=== PATIENT | female | born 1950 | race Caucasian/White ===

== ENCOUNTER 2017-10-30 09:04 | Outpatient (CLI) | payer MEDICARE, BC | END 2017-10-30 09:05 | disposition home or self-care (01) | LOC: BICCT 09:04 | PROVIDERS: ATTEND Internal Medicine | DX: K59.00 Constipation, unspecified (principal); R14.0 Abdominal distension (gaseous); K57.30 Diverticulosis of large intestine without perforation or abscess without bleeding; K76.89 Other specified diseases of liver | CPT/HCPCS: 74177 ==

== ENCOUNTER 2019-09-15 13:50 | Outpatient (CLI) | payer MEDICARE, BC ==
--- NOTE | 2019-09-15 14:42 | RAD ---
Cervical spine 3 views HISTORY: Neck pain. FINDINGS: Vertebral body heights are maintained. Disc space narrowing is most pronounced at the C3-4 and C5-6 levels. There is minimal degenerative spondylolisthesis at the cervicothoracic junction. Osteophytosis throughout the vertebral bodies and facets. No acute fracture, dislocation, or aggressi ve osseous erosions. IMPRESSION : Osteoarthritic changes of the cervical spine. No acute osseous abnormalities are demonstrated.
== END 2019-09-15 13:51 | disposition home or self-care (01) ==
LOC: RAD-FRANK 13:50
PROVIDERS: ATTEND Nurse Practitioner Family
DX: G54.2 Cervical root disorders, not elsewhere classified (principal); M47.812 Spondylosis without myelopathy or radiculopathy, cervical region
CPT/HCPCS: 72040

== ENCOUNTER 2019-10-15 09:38 | Outpatient (CLI) | payer MEDICARE, BC ==
--- NOTE | 2019-10-15 10:48 | MRI ---
Exam: MRI cervical spine without contrast HISTORY: Cervical radiculopathy.. COMPARISON: None FINDINGS: Straightening of cervical lordosis may be due to patient position. Appropriate T1 marrow signal inte nsity of the cervical vertebra. Vertebral body height is maintained. No fracture. No significant STIR hyperintensity to suggest vertebral body edema or ligamentous injury. Visualized brain parenchyma, cervicomedullary junction, cervical cord and the upper thoracic cord hav e a normal size and signal intensity. C2-C3: No significant central canal stenosis or significant neural foraminal narrowing. C3-C4: Disc desiccation with mild loss of disc space height. Broad-based disc osteophyte complex. Mil d central canal stenosis. Moderate to severe right and moderate left neural foraminal narrowing due to uncovertebral hypertrophy. C4-C5: Disc desiccation without significant loss of disc space height. Broad-based disc bulge abuts t he thecal sac and nearly effaces the subarachnoid space. Mild central canal stenosis. Bilaterally, neural foramina are patent. C5-C6: Disc desiccation with moderate loss of disc space height. Broad-based disc osteophyte complex abuts the thecal sac. Mild mass effect and deformity of the cervical cord. Mild central canal stenosis. Mild to moderate bilateral foraminal narrowing due to uncovertebral hypertrophy. C6-C7: Disc desiccation with moderate loss of disc space height. Broad-based disc osteophyte complex abuts the thecal sac. Mild to moderate central canal stenosis. Mild to moderate bilateral neural foraminal narrowing. Perineural sleeve cyst in the left neural foramen. C7-T1: Adequate disc hydration. No significant central canal stenosis or significant neural foraminal narrowing. IMPRESSION: Multilevel degenerative changes of the cervical spine as described above. Transcribed Date/Time: 10/15/2019 10:57 AM
== END 2019-10-15 09:39 | disposition home or self-care (01) ==
LOC: TBSIIMAG 09:38
PROVIDERS: ATTEND Nurse Practitioner Family
DX: G54.2 Cervical root disorders, not elsewhere classified (principal); M47.812 Spondylosis without myelopathy or radiculopathy, cervical region
CPT/HCPCS: 72141

== ENCOUNTER 2019-12-06 11:47 | Emergency (ER) | payer MEDICARE, BC ==
[2019-12-06 12:13] LABS: #Lymphocytes 1.5 thou/uL (1.20-3.40); #Monocytes 0.8 thou/uL (0.11-0.59); #Neutrophils 8.7 thou/uL (1.40-6.50); %Basophils 0.2 % (0.0-1.0); %Eosinophils 0.3 % (0.0-10.0); %Lymphocytes 13.5 % (21.0-51.0); %Monocytes 6.8 % (0.0-10.0); %Neutrophils 79.3 % (42.0-75.0); Hemoglobin 13.8 g/dL (12.0-16.0); Mean Corpuscular Hemoglobin 32.3 pg (27.0-31.0); Mean Platelet Volume 6.7 fL (7.4-10.4); Platelet Count 333 thou/uL (130-400); RBC Distribution Width 11.3 % (11.5-14.5); Red Blood Cell (RBC) Count 4.27 mill/uL (4.20-5.40)
[2019-12-06 12:38] LABS: ALT (SGPT) 10 U/L (8-55); AST (SGOT) 12 U/L (5-34); Albumin 3.9 g/dL (3.4-4.8); Alkaline Phosphatase 64 U/L (40-110); Anion Gap 13 mmol/L (10-20); BUN (Urea Nitrogen) 13 mg/dL (9.8-20.1); Bilirubin, Total 0.4 mg/dL (0.2-1.2); Calc. Creatinine Clearance 0 mL/min (70-130); Calcium 9.5 mg/dL (7.8-10.44); Carbon Dioxide 24 mmol/L (23-31); Chloride 101 mmol/L (98-107); Estimated GFR-MDRD 90; Glucose 103 mg/dL (80-115); Lipase 12 U/L (8-78); Potassium 4.2 mmol/L (3.5-5.1); Protein, Total 6.9 g/dL (6.0-8.3); Sodium 134 mmol/L (136-145)
[2019-12-06] MEDS ORDERED: Ketorolac Tromethamine 30 MG/ML VIAL ONE (12:58)
[2019-12-06] MEDS ORDERED: Metoclopramide HCl 10 MG/2 ML VIAL ONE (12:58)
[2019-12-06] MEDS ORDERED: diphenhydrAMINE 50 MG/ML VIAL ONE (12:58)
--- NOTE | 2019-12-06 13:17 | CT ---
Exam: Head CT without contrast HISTORY: Neck pain. Headache. COMPARISON: none FINDINGS: Hemorrhage: No intraparenchymal hemorrhage or extra-axial hematoma. Brain parenchyma: Cortical dietrich-white matter differentiation is preserved. No mass effect or midline shift. Basilar cisterns are patent. Ventricular system: Ventricles and sulci are patent and symmetric. Calvarium: Intact. Sinuses and mastoid air cells: Adequate aeration. IMPRESSION: No acute intracranial process.
[2019-12-06 13:31] LABS: Bilirubin Negative (Negative); Blood, Urine Negative (Negative); Clarity Turbid (Clear); Glucose, Urine (Dipstick) Normal (Negative); Ketone, Urine Negative (Negative); Leukocyte Negative Leu/uL (Negative); Nitrite Negative (Negative); Protein, Urine (Dipstick) Negative (Neg-Trace); Specific Gravity, Urine 1.016 (1.002-1.036); Urobilinogen Normal mg/dL (Less than 2)
== END 2019-12-06 14:59 | disposition home or self-care (01) ==
LOC: ERS 11:47
DX: G89.29 Other chronic pain (principal); M54.2 Cervicalgia; R53.1 Weakness; F17.210 Nicotine dependence, cigarettes, uncomplicated
CPT/HCPCS: 36415; 70450; 80053; 81003; 83690; 83880; 84484; 85025; 96365; 96375; J1200; J1885; J2765

== ENCOUNTER 2023-04-01 09:33 | Outpatient (CLI) | payer MEDICARE, BC | END 2023-04-01 09:34 | disposition home or self-care (01) | LOC: BICMRI 09:33 | PROVIDERS: ATTEND Orthopaedic Surgery | DX: M24.811 Other specific joint derangements of right shoulder, not elsewhere classified (principal); M75.121 Complete rotator cuff tear or rupture of right shoulder, not specified as traumatic; S46.811A Strain of other muscles, fascia and tendons at shoulder and upper arm level, right arm, initial encounter; M19.011 Primary osteoarthritis, right shoulder; M25.411 Effusion, right shoulder ==

== ENCOUNTER 2024-06-25 11:05 | Outpatient (CLI) | payer MEDICARE, BC | END 2024-06-25 11:06 | disposition home or self-care (01) | LOC: BICULT 11:05 | PROVIDERS: ATTEND Nurse Practitioner Family | DX: R22.1 Localized swelling, mass and lump, neck (principal) | CPT/HCPCS: 76536 ==